=== PATIENT | male | born 1940 | race Caucasian/White ===

== ENCOUNTER 2017-02-20 05:05 | Inpatient (IN) | payer MEDICARE, MEDICAID ==
[~2017-02-20] VITALS: Ht 163.8 cm; Wt 94.9 kg
--- NOTE | ~2017-02-20 | HP ---
PATIENT'S NAME: MARYSE PRUETT [facility] AGE: 76 Y [address] ROOM: [address] [place], [place] [address] LOCATION: GPCU ADMIT DATE: 02/20/2017 History & Physical DISCHARGE DATE: FAMILY PHYSICIAN: PHYSICIAN, UNKNOWN ATTENDING PHYSICIAN: ROSEMARY DOE DATE OF SERVICE: CHIEF COMPLAINT: Chest pain. HISTORY OF PRESENT ILLNESS: This is a 76-year-old male with multiple comorbidities who has ischemic cardiomyopathy, EF of 20%, back in November 2014 underwent AICD implantation. He says that recently about 2 weeks ago, he had AICD replaced by his primary med spa manager, Dr. Bishop, because the patient says that the AICD was not working properly at that time, according to the patient. However, the patient says that there was no arrhythmia detected and his AICD never delivered any shocks. The patient says that after the AICD replacement for the last 2 weeks, the patient has been feeling exertional chest pain and also in the mid chest with radiation to the right arm, intensity about 4/10 to 8/10 and is constant. Sometimes, it will go away with rest. The patient says that last night, the chest pain happened during rest, was 8/10, and again was constant. Therefore he went to an outside facility for evaluation. At the outside facility, the patient got 1 dose of a full dose aspirin and also was given nitroglycerin sublingual tablets twice, followed by nitroglycerin patch, and followed by nitroglycerin drip. The patient was sent over here. Troponin was also found to be elevated at outside facility, he was found to be at 0.318 with normal CK-MB and a normal CPK. EKG was paced. The patient was sent over here for further care. At home, the patient takes Xarelto for his history of paroxysmal atrial fibrillation. Upon arrival here, the patient has been chest pain free. REVIEW OF SYSTEMS: As mentioned in history of present illness. All other systems were reviewed and were negative except those mentioned in history of present illness. PAST MEDICAL HISTORY: 1. Coronary artery disease status post multiple cardiac stents in the past. The patient states that he had 3 stents in total placed; the most recent one was done in cardiac cath in July 2015; at that time, he got 1 drug-eluting stent to the distal LAD secondary to severe stenosis of the distal 2 previous stents. 2. Ischemic cardiomyopathy. EF of 20% back in 2015 status post AICD implantation. PATIENT'S NAME: MARYSE PRUETT [facility] AGE: 76 Y [address] ROOM: [address] [place], [place] [address] [facility] ADMIT DATE: 02/20/2017 History & Physical DISCHARGE DATE: FAMILY PHYSICIAN: PHYSICIAN, UNKNOWN ATTENDING PHYSICIAN: ROSEMARY DOE 3. History of ventricular tachycardia. 4. History of paroxysmal atrial fibrillation status post cardioversion in March 2015. 5. Hypertension. 6. Hyperlipidemia. 7. Systolic congestive heart failure. 8. CKD, stage 3. 9. Gastroesophageal reflux disease. 10. Hypothyroidism. ALLERGIES: DIGOXIN WHICH CAUSES ITCHINESS AND FACIAL FLUSHING, DOXYCYCLINE UNKNOWN REACTION, TEGADERM DRESSING UNKNOWN REACTION, ALLOPURINOL WHICH CAUSES SKIN BREAK OUT IN HIS LIPS AND ALSO HAS LIP SWELLING, SOUNDS LIKE ANAPHYLAXIS. HOME MEDICATIONS: 1. Levothyroxine 25 mcg p.o. daily. 2. Sotalol 80 mg p.o. b.i.d. 3. Lasix 20 mg p.o. daily. 4. Finasteride 5 mg p.o. daily. 5. Aspirin 81 mg p.o. daily. 6. Imdur 30 mg p.o. daily. 7. Multivitamin 1 tablet p.o. daily. 8. Omeprazole 20 mg p.o. daily. 9. Pravastatin 40 mg p.o. daily. 10. Xarelto 15 mg p.o. daily. SOCIAL HISTORY: The patient was a former cigarette smoker. He quit about 21 years ago. He used to smoke about 2 packs per day for 35 years. He is a social alcohol drinker. He denies any illegal drug use. FAMILY HISTORY: Both parents from old age from a cause that he could not remember. Mother did have a stroke. PAST SURGICAL HISTORY: 1. Status post multiple drug-eluting stents placed in the past. 2. Status post AICD implantation. 3. Appendectomy. 4. Tonsillectomy. PHYSICAL EXAMINATION: VITAL SIGNS: At the time of my evaluation, temperature 98, heart rate was 70, blood pressure was 135/87, respiration was 14, saturation was 98% on room air. PATIENT'S NAME: MARYSE PRUETT [facility] AGE: 76 Y [address] ROOM: [address] [place], [place] [address] [facility] ADMIT DATE: 02/20/2017 History & Physical DISCHARGE DATE: FAMILY PHYSICIAN: PHYSICIAN, UNKNOWN ATTENDING PHYSICIAN: ROSEMARY DOE GENERAL APPEARANCE: Alert and oriented x3, in no acute distress. HEENT: Pupils are equally round and reactive to light. Extraocular muscles intact. Anicteric sclerae. Nasal turbinates are normal bilaterally. Moist oral mucosa. NECK: No JVD. CARDIOVASCULAR: Regular rate and rhythm. No murmur. No rubs. No gallops. Normal S1, S2. RESPIRATORY: Clear to auscultation. No rales. No rhonchi. No wheezing. No crackles. ABDOMEN: Obese, soft, nontender, nondistended, no mass, and bowel sounds present. EXTREMITIES: Edema in bilateral lower extremities. This is chronic for the patient and has not changed. SKIN: No ulcer, no rash, no cyanosis. NEUROLOGICAL: Grossly nonfocal. LABORATORY DATA: CPK 80, troponin 0.297, proBNP is pending. CK-MB 1.6. INR 1.27. White blood cell 9.3, hemoglobin 16.5, hematocrit 47.5, platelets 128. The basic metabolic panel and liver function tests are currently pending. IMAGING STUDIES: EKG on admission here showed a paced rhythm at a heart rate of 82. This was done on February 20, 2017 at 6:55 a.m. ASSESSMENT AND PLAN: 1. Regarding his acute coronary syndrome: The patient already takes Xarelto at home and also takes baby aspirin. The patient is chest pain free right now. Troponin enzyme is trending down. I have already spoken to the on-call med spa manager, Dr. Hernandez overnight and also this morning Dr. Shiloh Handley and the plan will be for now, we will hold off on the heparin drip, given that patient is chest pain-free, enzymes are trending down, and Dr. Shiloh Handley will be seeing the patient for cardiology consult. N.p.o. for now. I will get a transthoracic echo to be done now. If the patient has chest pain, we will start him on the nitroglycerin drip. Check A1c and the lipid panel. Continue home medication including aspirin and Xarelto and I will start him on the Lipitor instead of the pravastatin and also we will start him on the Lopressor. Home medication is to be addressed once he is reconciled. Further plan will depend on clinical course. 2. Regarding his ischemic cardiomyopathy, EF of 20% in November 2014 status post AICD implantation: AICD was recently replaced by his primary med spa manager about 2 weeks ago. Further plan will depend on Cardiology. The patient is paced rhythm right now. 3. Regarding his history of paroxysmal atrial fibrillation: Continue PATIENT'S NAME: MARYSE PRUETT [facility] AGE: 76 Y [address] ROOM: [place] [address] [facility] ADMIT DATE: 02/20/2017 History & Physical DISCHARGE DATE: FAMILY PHYSICIAN: PHYSICIAN, UNKNOWN ATTENDING PHYSICIAN: ROSEMARY DOE. Continue beta-hal. Continue sotalol. QTc is fine. There is no prolongation on EKG. 4. Regarding his hypothyroidism: We will check a TSH and adjust the home dose of levothyroxine if needed. 5. Regarding his hypertension: Continue Lasix and right now he will be getting Lopressor as well. 6. Regarding his chronic kidney disease stage 3: Currently our kidney function is pending. Please follow up. 7. Regarding his gastroesophageal reflux disease: Continue omeprazole 20 mg p.o. daily. 8. Regarding his history of systolic congestive heart failure: Currently the patient seems euvolemic. Continue Lasix. Further plan depends on clinical course. 9. Regarding his coronary artery disease status post multiple cardiac stents in the past. The most recent one was done in July 2015 with one drug- eluting stent to the distal LAD: Further plan per Cardiology. N.p.o. for now. Continue all the medication as mentioned before. 10. He is a full code. Time spent in care on the day of admission was 45 minutes where 25 minutes were spent on counseling, including calling the on-call med spa manager, Dr. Shiloh Handley for consult. Counseling also includes going over the plan of care with the patient and the patient's and also addressing all their questions and concerns to their satisfaction. The remainder of the time was spent on chart review and also on the interview and also on the physical examination. Further plan will depend on clinical course. MD SWAPNIL LIU/malinda /[id number] D: [id number] T: [id number] HISTORY & PHYSICAL
--- NOTE | ~2017-02-20 | DS ---
PATIENT'S NAME: MARYSE PRUETT [facility] AGE: 76 Y [address] ROOM: [address] [place], [place] [address] LOCATION: GPCU ADMIT DATE: 02/20/2017 Discharge Summary DISCHARGE DATE: 02/22/2017 FAMILY PHYSICIAN: Physician, Unknown ATTENDING PHYSICIAN: Alexey Bhatti PRINCIPAL DIAGNOSES: 1. Vov-CZ-twwmybd elevation myocardial infarction. 2. Acute systolic congestive heart failure with volume overload. 3. Chronic kidney disease, state 3. 4. Paroxysmal atrial fibrillation. 5. Ischemic cardiomyopathy with EF 10% to 15%. HOSPITAL COURSE: Please refer the admission H and P for full history of initial presentation. This is a 76-year-old male with a known history of ischemic cardiomyopathy and systolic CHF, presented with chest pain and noted to be in NSTEMI. The patient was taken to cardiac cath promptly and was noted to have critically stenosed coronary artery disease in the LAD with 90% and distal RCA with 99% stenosis and had successful Impella-guided protected PCI of the RCA and LAD as well as drug-eluting stent placemen to the mid LAD and distal RCA. The patient had since been symptoms free. The patient did show some shortness on the initial day and was given a dose of IV Lasix with resolution of his symptoms. The patient is ambulating around the hallways very well today with little to no symptoms. The patient's creatinine today is 1.5, baseline being between 1.1 to 1.4. At this point, we will discharge the patient with p.o. Lasix 20 mg daily and he is to take an additional 20 mg if the symptoms arise. The patient is very well conversed in managing this. The patient has a followup appointment with Dr. Bishop next week. PHYSICAL EXAMINATION: GENERAL: Today, the patient is awake, alert, and oriented x3, in no acute distress. CHEST: Clear to auscultation bilaterally. HEART. S1 and S2. Regular rate and rhythm. ABDOMEN: Soft, nontender, and nontender. EXTREMITIES: Without edema. MEDICATIONS: Per MAR including Lasix 20 mg p.o. daily and 20 more as needed. DISPOSITION: Home. Less than 30 minutes were spent in discharge planning and facilitating. PATIENT'S NAME: MARYSE PRUETT [facility] AGE: 76 Y [address] ROOM: [place] [address] [facility] ADMIT DATE: 02/20/2017 Discharge Summary DISCHARGE DATE: 02/22/2017 FAMILY PHYSICIAN: Physician, Unknown ATTENDING PHYSICIAN: Alexey Bhatti MD BG/malinda /[id number] d: 02/23/17 0247 t: 02/25/17 1520, DISCHARGE SUMMARY
--- NOTE | ~2017-02-20 | CON ---
PATIENT'S NAME: JASON HAILE [facility] AGE: 76 Y [address] ROOM: [address] [place], [place] [address] LOCATION: GPCU ADMIT DATE: 02/20/2017 Consultation DISCHARGE DATE: FAMILY PHYSICIAN: PHYSICIAN, UNKNOWN ATTENDING PHYSICIAN: ROSEMARY DOE DATE OF CONSULTATION: 02/20/2017 REFERRING PHYSICIAN: ALVA FLEMING MD PRIMARY PRECISION MACHINIST: Dr. Bishop. REASON FOR CONSULTATION: Chest pain. HISTORY OF PRESENTING ILLNESS: The patient is a very pleasant, 76-year-old male who has recently seen Dr. Bishop in [facility] on 01/29/2017 where he was set up for generator change for ILAN. The patient has history of ischemic cardiomyopathy, status post BiV-ICD placement. He also has history of extensive coronary artery disease, status post PCI of the LAD. His last PCI was in 2013 where he had severe stenosis of the distal LAD by Dr. Sauceda. The patient also has history of paroxysmal atrial fibrillation and is on long-term anticoagulation medication. He is on antiarrhythmic therapy and Xarelto. He has chronic kidney disease, stage 3. He also had an elevated PSA for which he is seeing a urologist. The patient reports that for the past 2 weeks, he has chest burning that occurs with minimal exertion. The patient reports that when he exerts even to the level of just going to the bathroom, he has burning sensation in his chest that gets better with rest. For the past day or two, he reports having this burning sensation in his chest even at rest. He took 2 sublingual nitroglycerin, and the burning in his chest completely resolved. He went to his local emergency room in [place], and basically, he was having recurrent episodes of chest discomfort for which he was transferred to [facility] for definitive therapy and possible heart catheterization. The patient reports, in terms of breathing, he is doing fairly well. He does not have any PND, orthopnea, or lower extremity edema. He does have chronic dyspnea on exertion that has been worse in the recent past. He reports he had similar symptoms, but much more severe when he had his first heart attack requiring the LAD stent. He has been limiting activities due to above symptoms. NO bleeding issues. PATIENT'S NAME: JASON HAILE [facility] AGE: 76 Y [address] ROOM: [address] [place], [place] [address] LOCATION: [facility] ADMIT DATE: 02/20/2017 Consultation DISCHARGE DATE: FAMILY PHYSICIAN: PHYSICIAN, UNKNOWN ATTENDING PHYSICIAN: ROSEMARY DOE He does not have any fever; chills; nausea; vomiting; skin rashes; stroke-like symptoms; or changes in his speech, swallowing, vision, or urination. No bleeding issues or upcoming surgeries. He has been tolerating and compliant with his medications. As far as the recent generator change, his site looks good, and he does not have any issues from the recent generator exchange. ROS: All review of systems discussed with patient and pertinent positives and negatives mentioned in the HPI. ALLERGIES: TEGADERM, ALLOPURINOL, DIGOXIN, AND DOXYCYCLINE. CURRENT MEDICATIONS: 1. Cranberry 500 mg daily. 2. Lasix 20 mg daily. 3. Finasteride 5 mg daily. 4. Multivitamins daily. 5. Nitroglycerin 0.4 mg sublingual p.r.n. 6. Omeprazole 20 mg daily. 7. Pravachol 40 mg daily. 8. Sotalol 80 mg p.o. b.i.d. 9. Xarelto 15 mg p.o. daily. 10. Synthroid 0.025 mg daily. 11. Aspirin 81 mg daily. 12. L-arginine 1000 mg 2 tablets daily. 13. Flonase p.r.n. FAMILY HISTORY: No premature coronary artery disease or sudden cardiac . SOCIAL HISTORY: The patient is and lives with his in [place]. He does not smoke. No illicit drug abuse or alcohol abuse. PHYSICAL EXAMINATION: VITAL SIGNS: His blood pressure is 126/70,Pulse is 78, respirations 18, afebrile, His weight is 93 kg. GENERAL: He is very pleasant, not in any apparent distress. SKIN: Warm and dry. HEENT: Head: Normocephalic, atraumatic. Eyes: No xanthelasma. Sclerae white. Nose: Non-deviated. Mouth: Mucous membranes moist. NECK: No JVD. LUNGS: Clear to auscultation bilaterally. HEART: S1 and S2, regular rate and rhythm. No murmurs, gallops, or rubs. The site of the generator change is mildly swollen; however, there is no discharge and appears well healed. ABDOMEN: Soft. Bowel sounds positive. NEUROLOGIC: Able to move all extremities against gravity. PATIENT'S NAME: JASON HAILE [facility] AGE: 76 Y [address] ROOM: [address] [place], [place] [address] LOCATION: GPCU ADMIT DATE: 02/20/2017 Consultation DISCHARGE DATE: FAMILY PHYSICIAN: PHYSICIAN, UNKNOWN ATTENDING PHYSICIAN: ROSEMARY DOE PSYCHIATRIC: Alert and oriented to time, place, and person. LABORATORY DATA: Sodium 140, potassium 3.8, chloride 103, CO2 of 28, BUN 25, and creatinine 1.6. Albumin 3.4. AST 20 and ALT 21. Phosphorus 3. Estimated GFR 42. Magnesium 2.1. Cholesterol 166, triglycerides 156, and LDL is 80. CPK 80, CK- MB 1.6, troponin is 0.297, and proBNP is 1828. TSH is 2.8. WBC 9.3; H and H 16.5 and 47.5; and platelets are 128, they have been low since 2013. Cardiovascular: His last catheterization was done in 2014 where he had a PCI of the distal LAD using a drug-eluting stent, a Promus PREMIER 2.75 x 12, that was placed distal to the initial stent; mid circumflex with 30% stenosis; and slow flow in the RCA. His last echocardiogram was done in September 2013 where his LVEF was reported to be 30%, and he had anterior and septal wall hypokinesis with dilated LV. IMPRESSION AND PLAN: 1. Mbl-IT-pygxvtbwb myocardial infarction. 2. Ischemic cardiomyopathy with history of PCI to the LAD. LVEF is about 20%. 3. Paroxysmal atrial fibrillation, on Xarelto and sotalol. 4. Chronic kidney disease, stage 3. 5. Hyperlipidemia. 6. Coronary artery disease, status post PCI of the LAD several years ago in the setting of an acute myocardial infarction and most recently in 2013 for obstructive lesion in the distal RCA distal to the previously placed stents. 7. Acute on chronic combined CHF, NYHA 3 with mild volume overload. At this time, the patient is giving classical symptoms of obstructive CAD and new-onset chest burning, especially with minimal exertion, and now, he has been having it at rest. At this time, the patient needs a cardiac cath and possible PCI. Risks and benefits of cardiac cath discussed with the patient. Risks of bleed, bruise, infection 1 in 100 cases, risk of , [place], CVA, emergent bypass surgery, and bleeding discussed with the patient. His risk of MORENA as well as bleeding is higher than average population given the need for Xarelto and CKD as well as ischemic cardiomyopathy. The patient understands, and at this point, his lifestyle is limited. He has a non-STEMI. At this point, he is agreeable to taking the risks and proceeding with the heart catheterization. We will optimize his renal function prior to the cath, give him Mucomyst as well as IV hydration, and monitor his renal function closely. I will start him on Plavix if he needs any stents since he is already on Xarelto. d/w pt if PCI necessary may need to place device for hemodynamic support. As far as the BiV-ICD, he did have a recent generator change, and he also had that interrogated recently without any issues, and it was normally functioning, per the patient, when it was interrogated post generator change. We will continue the rest of his medications, and his case was discussed with Dr. Bishop. PATIENT'S NAME: JASON HAILE [facility] AGE: 76 Y [address] ROOM: [place] [address] [facility] ADMIT DATE: 02/20/2017 Consultation DISCHARGE DATE: FAMILY PHYSICIAN: PHYSICIAN, UNKNOWN ATTENDING PHYSICIAN: ROSEMARY DOE We will have the patient follow up again with Dr. Bishop after his hospitalization. Thank you very much Dr. Bishop for allowing us to participate in the care of Jason Haile. ALVA FLEMING MD AT/modl /[id number] d: 02/20/17 1325 t: 02/21/17 1732, CONSULTATION REPORT
--- NOTE | ~2017-02-20 | ECHO ---
Transthoracic Echocardiography Report (TTE) Demographics Patient Name MARYSE PRUETT Date of Study 02/20/2017 Patient Number [id number] Visit Number [id number] Date of 1940 Room Number [address] Accession Number [id number] Gender Male Age 76 year(s) Referring Magy Cerda MD Operations Intelligence Chelsea Joseph RDCS, Physician RVT Physician Interpreting Emmanuelle Matamoros Mechanic Chief Physician MD Supervising Ordering Physician Mgay Cerda MD, MD/P Nurse Stress Mason Tender Restoration Labor Conclusions Summary Technically difficult exam. Dilated cardiomyopathy with severely reduced LV systolic function with regional wall motion abnormalities. The estimated left ventricular ejection fraction is 10-15%. Mild concentric left ventricular hypertrophy. Diastolic assessment reveals Grade II pseudonormal diastolic function . Mildly reduced right ventricular function. The left atrium is severely dilated by LA volume index measurement. Mild-moderate mitral regurgitation by color Doppler. Procedure Type of Study TTE procedure:2D Echocardiogram, Echo with Contrast. Procedure Date Date: 02/20/2017 Start: 08:45 AM Study Location: Inpatient Portable Technical Quality: Limited visualization due to body habitus. Indications:Elevated Troponin. Appropriate Use Criteria: 9 Patient Status: STAT Contrast Medium: Definity. Amount - 5 ml BP: 152/103 mmHg Allergies - Antibiotics:(doxycycline). - Other:(Digoxin, Allupurinol, Silver). M-Mode/2D Measurements LV Diastolic Dimension: 5.16 cm LV Systolic Dimension: 4.9 cm LV Septum Diastolic: 1.12 cm LV PW Diastolic: 1.08 cm AO Root Dimension: 3 cm AV Cusp Separation: 2 cm RV Diastolic Dimension: 2.61 cm LA Dimension: 3.2 cm LA volume: 93 ml LVOT: 1.9 cm TAPSE: 1.51 cm LVOT VTI: 15.5 cm TDI-S': 8.01 cm/s LV Stroke volume: 43.92 ml Doppler Measurements AV Peak Velocity: 0.91 m/s MV Peak E-Wave: 0.65 m/s AV Peak Gradient: 3.31 mmHg MV Peak A-Wave: 0.55 m/s AV Mean Gradient: 2 mmHg MV E/A Ratio: 1.17 LVOT Peak Velocity: 0.89 m/s MV Deceleration Time: 158 msec TR Velocity:1 m/s PV Peak Velocity: 0.94 m/s TR Gradient:4 mmHg PV Peak Gradient: 3.51 mmHg Estimated RAP:15 mmHg Estimated PASP: 19 mmHg Estimated RVSP: 19 mmHg A' Septal Velocity: 0.11 m/s E' Septal Velocity: 0.07 m/s A' Lateral Velocity: 0.06 m/s E' Lateral Velocity: 0.13 m/s Findings Left Ventricle Mild concentric left ventricular hypertrophy. Diastolic assessment reveals Grade II pseudonormal diastolic function . Right Ventricle Mildly reduced right ventricular function. Device lead noted in the right ventricle. Left Atrium The left atrium is severely dilated by LA volume index measurement. Right Atrium The right atrium is mildly dilated. Dilated IVC with poor inspiratory collapse consistent with elevated RA pressure. Mitral Valve Mild-moderate mitral regurgitation by color Doppler. Aortic Valve Normal aortic valve structure and function. Tricuspid Valve The tricuspid valve is not well visualized. Pulmonic Valve Normal pulmonic valve structure and function. Pericardial Effusion No evidence of pericardial effusion. Miscellaneous Visualized portions of the aortic root and ascending aorta appear normal in size. Pleural Effusion No evidence of pleural effusion. Signature dtt: ALVA FLEMING dtd: 02/20/17 0845 Physician Self Edit
--- NOTE | ~2017-02-20 | CATH ---
Cardiac Diagnostic + PCI Report Demographics Patient Name FLYNN Tejeda Gender Male Date of 1940 Age 76 year(s) Patient Number [id number] Date of Study 02/20/2017 Visit Number [id number] Room Number G6309 [place] [id number] Ht 162.56 cm Wt 88.7 kg Referring Magy Cerda MD Primary Physician Physician Performing [facility] Secondary Physician Physician Shiloh WHELAN Diagnostic [facility] Assisting Physician Physician Shiloh WHELAN Interventional [facility] Physician Stockroom Coordinator Physician Shiloh WHELAN Findings and Conclusions Diagnostic Findings and Conclusion 1. Ischemic cardiomyopathy with LVEF 20% on echocardiogram. 2. Congestive heart failure with mild volume overload. LVEDP 26 mmHg. 3. Chronic kidney disease, Stage III. 4. Critical two vessel coronary artery disease in LAD (ISR) 90% and distal RCA with 99% stenosis. Diagnostic Recommendations Impella guided protected PCI of RCA and LAD given cardiomyopathy with severely decreased LV systolic function, acute on chronic CHF and elevated LV EDP. Interventional Findings and Conclusion 1. Successful Insertion of the Impella for protected PCI. 2. Successful PCI of mid-LAD and distal RCA with ROGE. Interventional Recommendations Aspirin 81 mg, Xarelto 15 mg and Plavix for one month. Then dc asa and continue Plavix and Xarelto for one year. Hydration and followup creatinine. Patient will be observed overnight. Patient has been instructed to not lift anything more than 5 pounds for 1 week. Optimize LV systolic function. Aggressive risk factor management. Aggressive medical therapy for coronary artery disease. Recommend aggressive risk factor modification. Optimization of medical therapy as an outpatient. Cardiac diet . Referral to Cardiac Rehabilitation after discharge . I would like to thank Dr. Bishop for the opportunity to participate in the care of Mr. Haile . Procedure Description The patient was brought to the diagnostic cardiac catheterization-EP laboratory in the fasting, non-sedated state. Informed consent was obtained in the written and verbal form after the risks and benefits were explained. The patient had no further questions and agreed to proceed. The planned puncture-incision site(s) were shaved and prepped with ChloraPrep and draped in the usual sterile manner. Conscious sedation, supplemental oxygen, and pain control medications were delivered by a registered nurse under physician guidance. Surface ECG rhythm, blood pressure measurement, and pulse oximetry were monitored throughout the procedure. Arterial access. The access site was infiltrated with lidocaine. The vessel was entered with the Seldinger technique. A sheath was advanced into the vessel and used for catheter placement. Selective left coronary angiography. A catheter was advanced into the left coronary vessel ostium under Fluoroscopic guidance. Contrast was injected by hand. Images were obtained in multiple projections. Selective right coronary angiography. A catheter was advanced into the right coronary vessel ostium under fluoroscopic guidance. Contrast was injected by hand. Images were obtained in multiple projections. Left heart catheterization. A catheter was advanced across the aortic valve to the left ventricle under fluoroscopic guidance. Resting hemodynamics were obtained. Impella Insertion (Perclose's). An Iliac angio was performed. Two 6 Fr Proglide''s were inserted into the femoral artery and deployed. The 6 FR sheath was then placed back into the artery. An Amplatz Super Stiff wire was advanced into the ascending aorta. Multiple dilations were performed on the artery to ultimately place a 14 FR sheath. Once that was accomplished the AL catheter was then placed into the LV cavity and the Amplatz wire was withdrawn. A .018 wire was then preshaped and placed into the left ventricle. Subsequently, an Impella device was placed into the left ventricle and could be seen to be in the cardiac apex. Placement was confirmed using fluoroscopy and the Impella console. After the procedure the Impella and the 14 FR sheath was removed. Perclose''s were tied and homeostasis was obtained. Angioplasty and Stent Placement: A guiding catheter was used to intubate the vessel. A 0.14 wire was then used to cross the lesion. A balloon catheter was placed across the lesion and inflated. The balloon catheter was then removed. A Drug Eluting Stent was placed and inflated. Post placement angiograms were performed. Arterial artery hemostasis was achieved. The patient was transferred back to PCU via cart accompanied by a nurse. The patient left the laboratory in stable condition. Diagnostic Cath Status: Elective Interventional Cath Status: Urgent Procedure Procedure Type Diagnostic procedure:Angiography:, Coronary Angios w/[facility] PCI procedure:Drug Eluting Coronary Stent:, LAD, RCA, Support:, Impella:, Insertion, Removal Indications: Non-ST elevation VA and Unstable angina. The procedure was explained in detail to the patient. Risks, complications and alternative treatments were reviewed. Written consent was obtained. Medications Reviewed with Patient prior to Procedure. Angiographic Findings Dominance: Right Cardiac Arteries and Lesion Findings LMCA: Normal (0% Stenosis). LAD: Multiple stenosis.There is a previous stent on Dist LAD showing diffuse ISR. Lesion on Dist LAD: Proximal subsection.90% stenosis 14 mm length reduced to 0%. Pre procedure CINDY III flow was noted. Post Procedure CINDY III flow was present. The guidewire cross was successful.The lesion was diagnosed as a low risk lesion.Culprit lesion. Devices used - Emerge Balloon 2.5 x 12. 1 inflation(s) to a max pressure of: 6 chadwick. - Emerge Balloon 2.5 x 12. 1 inflation(s) to a max pressure of: 10 chadwick. - Promus Premier 2.75 x 20 Stent. 2 inflation(s) to a max pressure of: 12 chadwick. Lesion on 2nd Diag: Proximal subsection.80% stenosis . Comments:Small. LCx: Multiple stenosis. Lesion on Mid CX: Mid subsection.20% stenosis . Lesion on 2nd Ob Bharati: Proximal subsection.40% stenosis . RCA: Multiple stenosis. Lesion on Dist RCA: Mid subsection.99% stenosis 10 mm length reduced to 0%. Pre procedure CINDY II flow was noted. Post Procedure CINDY III flow was present. The guidewire cross was successful.The lesion was diagnosed as a low risk lesion.Culprit lesion. Devices used - Runthrough NS .014 x 180. Number of passes: 1. - Emerge Balloon 2.5 x 12. 2 inflation(s) to a max pressure of: 6 chadwick. - Promus Premier 3.0 x 16 Stent. 2 inflation(s) to a max pressure of: 12 chadwick. Lesion on Mid RCA: Distal subsection.30% stenosis . Lesion on 1st RPL: Proximal subsection.10% stenosis . Lesion on R PDA: Proximal subsection.10% stenosis . Coronary Tree Procedure Data Procedure Date Date: 02/20/2017Start: 11:10 AMEnd: 12:43 PM Entry Locations - Retrograde Percutaneous access was performed through the Right Radial artery (Primary location). A 6 Fr sheath was inserted. Hemostasis was successfully obtained using Mechanical Compression. Closure Comments: 16 cc air in r band by Madhu. - Retrograde Percutaneous access was performed through the Right Femoral artery. A 6 Fr sheath was inserted. This was exchanged for a 14 Fr sheath. Hemostasis was successfully obtained using Perclose ProGlide (Stoddard). Entry Comments: Impella site.. Closure Comments: two preclose perclose devices inserted at beginnig of case perclose devices deployed at end by Dr Blackburn [id number]. Procedure Medications Order and Administration + + + + + !Time !Medication !Dosage !Route ! + + + + + !02/20/2017 11:07 !Versed !0.5 mg !I.V. ! !AM ! ! ! ! + + + + + !02/20/2017 11:09 !Fentanyl !25 mcg !I.V. ! !AM ! ! ! ! + + + + + !02/20/2017 11:15 !Radial Verapamil !2.5 mg !I.A. ! !AM ! ! ! ! + + + + + !02/20/2017 11:18 !Oxygen !2 l/min !NC ! !AM ! ! ! ! + + + + + !02/20/2017 11:27 !Versed !0.5 mg !I.V. ! !AM ! ! ! ! + + + + + !02/20/2017 11:29 !Versed !0.5 mg !I.V. ! !AM ! ! ! ! + + + + + !02/20/2017 11:30 !Fentanyl !25 mcg !I.V. ! !AM ! ! ! ! + + + + + !02/20/2017 11:30 !Oxygen !3 l/min !NC ! !AM ! ! ! ! + + + + + !02/20/2017 11:38 !Angiomax (Bivalirudin) !67.5 mg !I.V. bolus ! !AM !(ACC_5) ! ! ! + + + + + !02/20/2017 11:40 !Angiomax (Bivalirudin) !1.75 mg/kg/hr!I.V. drip ! !AM !(ACC_5) ! ! ! + + + + + !02/20/2017 11:42 !Fentanyl !25 mcg !I.V. ! !AM ! ! ! ! + + + + + 02/20/2017 11:42 !Versed !0.5 mg !I.V. ! !AM ! ! ! ! + + + + + 02/20/2017 12:35 !Angiomax (Bivalirudin) ! !I.V. drip ! !PM !(ACC_5) ! ! ! + + + + + !02/20/2017 12:37 !Oxygen ! !NC ! !PM ! ! ! ! + + + + + !02/20/2017 12:39 !Plavix (ACC_8) !600 mg !P.O. ! !PM ! ! ! ! + + + + + Devices Used - A5 Fr. BS JR 4 Diag. Catheterwas used for:Right coronary angiography. - A5 Fr. BS JL 3.5 Diag. Catheterwas used for:Left coronary angiography. - A6 Fr. BS Angled Pigtail Diag. Catheterwas used for:Impella Placement. - A6 Fr. JR4 Guide Catheterwas used for:RCA Intervention. - A6 Fr. XB 3.5 Guide Catheterwas used for:LAD Intervention. Contrast Material - Isovue 89089 ml Fluoroscopy Time: Diagnostic: 14:12 minutes. Total: 14:12 minutes. Fluoroscopy Dose: Diagnostic: 1271 mGy. Total: 1271 mGy. Estimated Blood Loss: 20 ml. Other Mechanical Ventricular Support: Inserted during procedure and prior to PCI. Medical History Allergies - Antibiotics:(doxycycline). - Other:(Digoxin, Allupurinol, Silver). - Other:(Digoxin Allopurinol Doxycyclin Silver). Risk Factors The patient risk factors include:prior PCI on 07/21/2015;treated hypercholesterolemia, treated hypertension, last creatinine: 1.6 mg/dl, creatinine clearance: 50.05 ml/min, dyslipidemia, former tobacco use and prior VA . Admission Data Admission Date: 02/20/2017 Admission Time: 06:38 AM Admit Source: [facility] Insurance Payors: Medicare. Admission Medications + +------+------+---------+ + + + !Medication !Dosage!Times !Last !Last !Administered !Comments ! ! ! !Per !Delivery !Delivery ! ! ! ! ! !Day !Date !Time ! ! ! + +------+------+---------+ + + + !Beta Cristian ! ! ! ! ! ! ! !(any) ! ! ! ! ! ! ! + +------+------+---------+ + + + !Nitrates (iv ! ! ! ! ! ! ! !or buccal) ! ! ! ! ! ! ! + +------+------+---------+ + + + !Statin (any) ! ! ! ! ! ! ! + +------+------+---------+ + + + !Aspirin (any)! ! ! ! ! ! ! + +------+------+---------+ + + + !Clopidogrel ! ! ! ! ! ! ! + +------+------+---------+ + + + Clinical Evaluation Leading to Procedure Diagnosed on 02/20/2017 12:00 AM. - The patient's CAD presentation was assessed as: Non-STEMI.The symptom onset was first noted on 02/19/2017 12:00 AM(time was estimated). - The patient's anginal syndrome during the past two weeks was assessed as: Class IV according to the [place] Cardiovascular Society Classification System (CCS). Anti-anginal medications were prescribed during the past two weeks. The medications are: Beta Blockers and Long Acting Nitrates. - The patient has been in a state of heart failure within the past two weeks. - The patient's heart failure status was assessed as NYHA Class II, with CHF symptoms of DÍAZ. 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 VA LV function assessed . Ejection Fraction - 02/19/2017 - Method: Echocardiography. EF%: 20. Snapshots Hemodynamics Condition: Rest O2 Consumption: Estimated: 235.91Heart Rate: 88 bpm Pressures (mmHg) +-----+ + !Site !Pressure ! +-----+ + !LV !131/4 ,29 ! +-----+ + !LV !136/6 ,33 ! +-----+ + !AO !134/77 (100) ! +-----+ + !LV !138/6 ,27 ! +-----+ + !AO !137/76 (100) ! +-----+ + Valve Gradients and Areas + +---------+---------+---------+ +---------+ + !Valve !Peak !Mean !Area !Index !Flow !Source ! + +---------+---------+---------+ +---------+ + !Aortic !3 !0 ! ! ! ! ! + +---------+---------+---------+ +---------+ + !Aortic !3 !0 ! ! ! ! ! + +---------+---------+---------+ +---------+ + Shunts Oxygen Values O2 Capacity 224.4 O2 Consumption 235.91 Signatures dtt: SHILOH FLEMING dtd: 02/20/17 1110 Physician Self Edit
[~2017-02-20 05:05] MED LIST: ASPIRIN (CHILDR81 MG PO; BETAPACE (GENER80 MG PO; CENTRUM COMPLE1 EACH PO; CRANBERRY500 M1 PO; IMDUR30 MG PO; LASIX20 MG PO; NITROSTAT 0.40.4 MG SL; OCEAN NASAL) (A44 ML NOSE; PLAVIX75 MG PO; PRAVACHOL40 MG PO; PRILOSEC20 MG PO; XARELTO15 MG PO; XARELTO20 MG PO; ZYRTEC10 MG PO
--- NOTE | 2017-02-20 06:59 | NUR ---
D: pt transfered from [facility] to [facility] at 0635 for GA. Pt has hx of 3 stents placed with GA x2. Hx of hypertension, hyperlipidemia, enlarged prostate with difficult starting stream, chaves's palsy, thyroid disorder, CHF, and gout. [facility] ICD placement [address] Keys to left chest, has a small scab to chest from adhesive. Hx of smoking but quit 21 years ago and drinks 2-3 times a week 1-2 drinks.
[2017-02-20 07:28] LABS: BASOPHIL % 0.3 %; EOSINOPHIL # 0.2 K/uL (0.0-0.5); EOSINOPHIL % 2.3 %; HEMATOCRIT 47.5 % (37.0-53.0); HEMOGLOBIN 16.5 g/dL (11.0-16.0); IMMATURE GRANULOCYTE # 0.1 K/uL (0.0-0.3); IMMATURE GRANULOCYTE % 0.5 %; LYMPHOCYTE # 1.3 K/uL (0.8-4.0); LYMPHOCYTE % 14.4 %; MCH 32.4 pg (27.0-34.0); MCHC 34.7 gm/dL (32.0-36.5); MCV 93.3 fl (83.0-98.0); MONOCYTE # 0.8 K/uL (0.0-1.0); MONOCYTE % 8.3 %; NEUTROPHIL # (ANC) 6.9 K/uL (1.4-9.0); NEUTROPHIL % 74.2 %; NRBC % 0 /100WBC (0-0.00); PLATELET COUNT 128 K/uL (150-450); RBC 5.09 M/uL (3.50-5.50); WBC 9.3 K/uL (4.0-11.0)
[2017-02-20 07:37] LABS: INR - (THERAPEUTIC) 1.27 (0.92-1.07); PROTIME 13.4 SECONDS (9.8-11.4)
[2017-02-20 07:46] LABS: ALBUMIN 3.3 gm/dL (3.5-5.0); CALCIUM 8.8 mg/dL (8.5-10.5); CREATININE 1.6 mg/dL (0.6-1.3); TOTAL BILIRUBIN 0.6 mg/dL (0.0-1.5); TOTAL PROTEIN 6.9 g/dL (6.0-8.4)
[2017-02-20 07:47] LABS: ANION GAP 12.9 (10.0-19.0); MAGNESIUM 2.1 mg/dL (1.8-2.6); POTASSIUM 3.9 mMol/L (3.7-5.1)
[2017-02-20 07:53] LABS: PTT 38 SECONDS (25-32)
[2017-02-20 09:07] LABS: ALBUMIN 3.4 gm/dL (3.5-5.0); ANION GAP 12.8 (10.0-19.0); CALCIUM 8.7 mg/dL (8.5-10.5); CREATININE 1.6 mg/dL (0.6-1.3); POTASSIUM 3.8 mMol/L (3.7-5.1); TOTAL BILIRUBIN 0.5 mg/dL (0.0-1.5); TOTAL PROTEIN 6.6 g/dL (6.0-8.4)
[2017-02-20] MEDS ORDERED: LEVOTHROID (SY50 MCG PO (10:54)
[2017-02-20] MEDS ORDERED: PROSCAR5 MG PO (10:54)
[2017-02-20] MEDS ORDERED: L-ARGININE1000 MG PO (10:55)
[2017-02-20] MEDS ORDERED: SSD (THERMAZENE25 GM TOP (10:56)
--- NOTE | 2017-02-20 13:02 | NUR ---
1100 Stopped by to see Jason but he was out of his room for a procedure. Will try to touchbase with him this afternoon or tomorrow to discuss dismissal plans.
[2017-02-20 15:41] LABS: BILIRUBIN URINE NEGATIVE (NEGATIVE); BLOOD URINE NEGATIVE /UL (NEGATIVE); COLOR URINE YELLOW (YELLOW); GLUCOSE URINE NEGATIVE (NEGATIVE); KETONE URINE NEGATIVE (NEGATIVE); LEUKOCYTES URINE NEGATIVE /UL (NEGATIVE); NITRITE URINE NEGATIVE (NEGATIVE); PROTEIN URINE NEGATIVE (NEGATIVE); TURBIDITY URINE CLEAR (CLEAR); UROBILINOGEN URINE NORMAL (NORMAL)
--- NOTE | 2017-02-20 16:45 | NUR ---
Significant Event: A/O X3. VSS. TO INVOICE CLASSIFICATION CLERK @ 1100, RETURNED @ 1300. STENT TO LAD X1 AND RCA X1. WAS ON IMPELLA DURING CATH. CATH SITE TO RIGHT RADIAL, R BAND CURRENTLY STILL IN PLACE. RIGHT GROIN SITE, SOFT, C/D, BEDREST COMPLETE @ 1800. NS @ 100 ML/HR X500 ML, INFUSING TO LEFT FA IV. RETURNED FROM INVOICE CLASSIFICATION CLERK ON 3L NC, CURRENTLY ON 2L, ATTEMPTED WEANING TO 1L BUT UNABLE TO MAINTAIN SATS >90%. FAMILY AT BEDSIDE. Follow up: MONITOR CATH SITES CLOSELY.
[2017-02-21 02:22] LABS: BASOPHIL % 0.3 %; EOSINOPHIL # 0.3 K/uL (0.0-0.5); EOSINOPHIL % 4.1 %; HEMATOCRIT 41.9 % (37.0-53.0); HEMOGLOBIN 14.3 g/dL (11.0-16.0); IMMATURE GRANULOCYTE % 0.5 %; LYMPHOCYTE # 0.7 K/uL (0.8-4.0); MCH 32.5 pg (27.0-34.0); MCHC 34.1 gm/dL (32.0-36.5); MCV 95.2 fl (83.0-98.0); MONOCYTE # 0.6 K/uL (0.0-1.0); MONOCYTE % 7.7 %; MPV 12.8 fl (9.4-12.4); NEUTROPHIL % 78.4 %; NRBC % 0 /100WBC (0-0.00); RDW-CV 13.2 % (11.9-14.6); WBC 7.6 K/uL (4.0-11.0)
[2017-02-21 02:24] LABS: PLATELET COUNT 101 K/uL (150-450)
[2017-02-21 02:42] LABS: ALBUMIN 2.6 gm/dL (3.5-5.0); CALCIUM 8.5 mg/dL (8.5-10.5); CREATININE 1.4 mg/dL (0.6-1.3); TOTAL BILIRUBIN 0.5 mg/dL (0.0-1.5); TOTAL PROTEIN 5.7 g/dL (6.0-8.4)
[2017-02-21 02:43] LABS: ANION GAP 11.6 (10.0-19.0); POTASSIUM 3.6 mMol/L (3.7-5.1)
--- NOTE | 2017-02-21 04:19 | NUR ---
Significant Event: Patient alert and oriented. Up with standby assist. Right groin soft, dressing clean and dry no oozin noted. CSM WNL. Right radial site with band off at 2029. Small amount of oozing prior to band being taken off, none since. Band-aide and coban in place. Pulses good and CSM WNL. Remains on 1L oxygen via nasal cannula. Tylenol given x1 for complaints of headache with relief noted. at bedside. Pleasant and cooperative with cares. Follow up: continue to monitor
--- NOTE | 2017-02-21 12:10 | NUR ---
1145 Introduced self and CM role to Jason, his S/O and his kids who were at bedside. Jason lives at home with his S/O in [place], [place] and plans to return ther upon dismissal. Jason tells me that his PCP is at [facility], but says that most times he ends up seeing ' PA, . Jason reports that he gets his medications filled at [facility]. His S/O states that she most often sets them up for him and makes sure that he takes them on time. She will continue to do this when he is dismissed from our facility. Jason doesn't use any DME at baseline, he is able to do all is own ADLs. Denies any other questions, needs or concerns at this time. Left contact information on his whiteboard for any further questions. CM to continue to follow and assist. Plan home, when talking with in the hallway, he says that it will probably be tomorrow before Jason gets to go home.
--- NOTE | 2017-02-21 16:49 | NUR ---
Patient is A/O. Independent with activity. Room air. SR per telemetry. Diuresed well today with PO/IV Lasix given. R. wrist cath site with bandaide-CDI. R. groin cath site with bandaide-CDI. Good CMS checks to both sites. Patient's remains at the bedside.
[2017-02-22 04:10] LABS: BASOPHIL % 0.5 %; EOSINOPHIL # 0.4 K/uL (0.0-0.5); EOSINOPHIL % 4.8 %; HEMATOCRIT 43.1 % (37.0-53.0); HEMOGLOBIN 14.3 g/dL (11.0-16.0); IMMATURE GRANULOCYTE # 0.1 K/uL (0.0-0.3); IMMATURE GRANULOCYTE % 0.6 %; LYMPHOCYTE # 1.2 K/uL (0.8-4.0); LYMPHOCYTE % 15.1 %; MCH 32.3 pg (27.0-34.0); MCHC 33.2 gm/dL (32.0-36.5); MCV 97.3 fl (83.0-98.0); MONOCYTE # 0.8 K/uL (0.0-1.0); MONOCYTE % 10.6 %; MPV 12.5 fl (9.4-12.4); NEUTROPHIL # (ANC) 5.4 K/uL (1.4-9.0); NEUTROPHIL % 68.4 %; NRBC % 0 /100WBC (0-0.00); PLATELET COUNT 108 K/uL (150-450); RBC 4.43 M/uL (3.50-5.50); RDW-CV 13.2 % (11.9-14.6); WBC 7.9 K/uL (4.0-11.0)
[2017-02-22 04:31] LABS: ALBUMIN 2.9 gm/dL (3.5-5.0); ANION GAP 10.9 (10.0-19.0); CALCIUM 8.8 mg/dL (8.5-10.5); CREATININE 1.5 mg/dL (0.6-1.3); POTASSIUM 3.9 mMol/L (3.7-5.1); TOTAL BILIRUBIN 0.6 mg/dL (0.0-1.5); TOTAL PROTEIN 6.1 g/dL (6.0-8.4)
--- NOTE | 2017-02-22 04:31 | NUR ---
Significant Event: A/O x3. Afebrile. Denies pain. VSS on RA. Rt wrist w/ bandaid c/d/i. Rt groin CAD DETAILER with small ecchymosis. Up ad sylwia. at bedside. Follow up: Plan for discharge today.
[2017-02-22] MEDS ORDERED: LIPITOR40 MG PO (10:56)
[2017-02-22] MEDS ORDERED: PLAVIX75 MG PO (10:56)
[2017-02-22] MEDS ORDERED: VASOTEC2.5 MG PO (10:57)
--- NOTE | 2017-02-22 11:25 | NUR ---
Patient dismissed to home with . Patient ambulating in halls and tolerating well denies dizziness/lightheadedness. heart Cath sites WNL. Discussed HF education and new meds. Patient denies question or concern of dismissal. OP cardiac rehab ordered.
== END 2017-02-22 11:20 | disposition disaster alternative care site (69) | DRG 216 ==
LOC: GPCU 05:05
PROVIDERS: Internal Medicine Interventional Cardiology; ADMIT Internal Medicine
PROC: 4A023N7 Measurement of Cardiac Sampling and Pressure, Left Heart, Percutaneous Approach (ICD-10-PCS; principal; 2017-02-20)
PROC: 5A0221D Assistance with Cardiac Output using Impeller Pump, Continuous (ICD-10-PCS; principal; 2017-02-20)
PROC: B2111ZZ Fluoroscopy of Multiple Coronary Arteries using Low Osmolar Contrast (ICD-10-PCS; principal; 2017-02-20)
PROC: 027135Z Dilation of Coronary Artery, Two Arteries with Two Drug-eluting Intraluminal Devices, Percutaneous Approach (ICD-10-PCS; principal; 2017-02-20)
DX: I21.4 Non-ST elevation (NSTEMI) myocardial infarction (principal); I50.43 Acute on chronic combined systolic (congestive) and diastolic (congestive) heart failure; N17.9 Acute kidney failure, unspecified; I13.0 Hypertensive heart and chronic kidney disease with heart failure and stage 1 through stage 4 chronic kidney disease, or unspecified chronic kidney disease; I48.0 Paroxysmal atrial fibrillation; N18.3 Chronic kidney disease, stage 3 (moderate); I25.110 Atherosclerotic heart disease of native coronary artery with unstable angina pectoris; E78.5 Hyperlipidemia, unspecified; E03.9 Hypothyroidism, unspecified; I25.5 Ischemic cardiomyopathy; K21.9 Gastro-esophageal reflux disease without esophagitis; Z79.01 Long term (current) use of anticoagulants; Z79.82 Long term (current) use of aspirin; Z95.5 Presence of coronary angioplasty implant and graft; Z95.810 Presence of automatic (implantable) cardiac defibrillator; Z87.891 Personal history of nicotine dependence; I25.2 Old myocardial infarction
CPT/HCPCS: C1725; C1760; C1769; C1874; C1887; C1894; C8929; C9600; J0583; J1644; J1940; J2250; J2370; J3010; J7030; J7060; Q9957